=== PATIENT | female | born 1985 | race Caucasian/White ===

== ENCOUNTER 2016-12-05 15:12 | Emergency (ER) | payer MEDICAID ==
[2016-12-05 16:13] LABS: CARBON DIOXIDE 29.1 mmol/L (21-32); CHLORIDE SERUM 103 mmol/L (98-107); GFR1 > 60 mL/min; GLUCOSE SERUM 111 mg/dL (74-106); POTASSIUM SERUM 3.8 mmol/L (3.5-5.1); SODIUM SERUM 138 mmol/L (136-145)
[2016-12-05 16:18] LABS: ALBUMIN 3.4 g/dL (3.4-5.0); ALKALINE PHOSPHATASE 71 U/L (46-116); ALT/SGPT 38 U/L (14-59); AST/SGOT 22 U/L (15-37); BILIRUBIN TOTAL 0.2 mg/dL (0.20-1.00); TOTAL PROTEIN, SERUM 7.4 g/dL (6.4-8.2)
[2016-12-05 16:31] LABS: BASOPHIL % 0.2 % (0-2); PLATELET COUNT 298 x10^3mcL (130-400)
[2016-12-05 19:00] VITALS: BP 129/71
== END 2016-12-05 19:00 | disposition home or self-care (01) ==
LOC: ED 15:12
PROVIDERS: Emergency Medicine
DX: N20.0 Calculus of kidney (principal)
CPT/HCPCS: J1885; J7030

== ENCOUNTER 2017-04-05 17:05 | Emergency (ER) | payer MEDICAID ==
[2017-04-05 19:33] VITALS: BP 123/95
== END 2017-04-05 19:33 | disposition home or self-care (01) ==
LOC: ED 17:05
DX: A06.0 Acute amebic dysentery (principal)